=== PATIENT | female | born 1945 | race Caucasian/White ===

== ENCOUNTER 2018-02-26 13:02 | Observation (INO) | payer BC, OTHER ==
[~2018-02-26] VITALS: Ht 167.6 cm; Wt 136.4 kg
[~2018-02-26 13:02] MED LIST: ESOM40CA PO; METO-448 PO; TRA50
[2018-02-26] MEDS ORDERED: SOD CHLORIDE 0.9% 1,000 ML IV STA (13:32)
[2018-02-26] MEDS ORDERED: ONDANSETRON 4 MG INJ IV STA ×2 (13:32→16:55)
[2018-02-26] MEDS ORDERED: MECLIZINE 12.5 MG TAB PO ONE (14:00)
[2018-02-26] MEDS ORDERED: ESOM40CA PO (14:14)
[2018-02-26] MEDS ORDERED: METO-335 PO (14:15)
[2018-02-26] MEDS ORDERED: TRIA1CAP PO (14:16)
[2018-02-26] MEDS ORDERED: DIAZEPAM 5 MG TAB PO ONE (17:00)
--- NOTE | 2018-02-26 18:03 | ERD ---
ER Documentation Chief Complaint Chief Complaint DIZZINESS SINCE 0500, HX OF CV 2003 WITH SIMLIAR SYMPTOMS HPI This is a very pleasant 72-year-old female who took aspirin just prior to arrival. The patient indicates that she awoke this morning with an episode of vertigo where she described the room spinning around her. This lasted for several minutes but she had 2 further episodes. The third episode persisted with significant nausea. There is no changes in vision. The patient denied a headache. Therefore she presented to the emergency department to be reevaluated. The patient does indicate that in 2003 she had a similar episode and was diagnosed with a cerebrovascular accident. 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 The patient is not currently on anticoagulant therapy and states she took aspirin as stated just prior to arrival but does not take this on a regular basis. She did not experience any emesis. She denies any numbness or tingling of her upper or lower extremities. She had no fevers or shaking or chills. She denies any chest pain. She has no shortness of breath at rest or exertion. ROS All systems reviewed and are negative except as per history of present illness. Medications Home Meds Reported Medications Triamterene/Hydrochlorothiazid (Dyazide 37.5-25 Capsule) 1 Each Capsule, 1 EACH PO DAILY, CAP 02/26/18 Metoprolol Succinate* (Toprol XL*) 25 Mg Tab.sr.24h, 25 MG PO DAILY, #30 TAB 02/26/18 Esomeprazole Mag Trihydrate (Nexium) 40 Mg Capsule.dr, 40 MG PO AC BREAKFAST, #30 CAP 02/26/18 Discontinued Reported Medications Esomeprazole Mag Trihydrate (Nexium) 40 Mg Capsule.dr, PO DAILY 03/19/11 Metoprolol Tartrate* (Lopressor*) 25 Mg Tab, 12.5 MG PO DAILY, 0 Refills 12/30/10 Trazodone Hcl* (Desyrel*) 50 Mg Tablet 12/30/10 Allergies Allergies: Coded Allergies: Penicillins (Verified Allergy, Unknown, 03/19/11) PMhx/Soc History of Surgery: Yes (ATRIAL MIXOMA,APPE,PARTIAL HYSTERECTOMY,GALLBLADDER SURGERY) Anesthesia Reaction: No Hx Neurological Disorder: No Hx Respiratory Disorders: No Hx Cardiac Disorders: Yes (HTN) Hx Psychiatric Problems: No Hx Miscellaneous Medical Probl: Yes (INSOMNIA) Hx Alcohol Use: No Hx Substance Use: No Hx Tobacco Use: No Smoking Status: Never smoker Physical Exam Vitals Vital Signs Date Temp Pulse Resp B/P (MAP) Pulse Ox O2 O2 Flow FiO2 Time Delivery Rate 02/26/18 69 18 140/77 99 Room Air 17:38 (98) 02/26/18 74 20 146/74 99 Room Air 16:00 (98) 02/26/18 97.2 77 18 164/77 98 13:04 (106) Physical Exam Constitutional:Well-developed. Well-nourished. HEENT:Normocephalic. Atraumatic.Pupils were equal round reactive to light. Moist mucous membranes.No tonsillar exudates. Neck: No nuchal rigidity. No lymphadenopathy. No posterior cervical spine tenderness or step-offs. Respiratory: Not using accessory muscles of respiration.Lungs were clear to auscultation bilaterally. No rhonchi. No rales. No wheezing. Cardiovascular: Regular rate regular rhythm.No murmurs. No rubs were appreciated.S1, S2 normal. Distal pulses are palpable 2+ bilaterally. GI: Abdomen was soft. Nontender. Non Distended. No pulsatile abdominal masses or bruits. No rebound. No guarding. Bowel sounds were present and normal. Muscle skeletal: Full range of motion of both the upper and lower extremities bilaterally.Normal muscle tone.No assymetrical calf tenderness or swelling. Skin: No petechia, no purpura. No lesions on the palms or the soles of the feet. No maculopapular rash. NEURO: Patient was alert, awake, orientated x3.No facial droop. Gait observed and normal with no ataxia.Speech had regular rate and rhythm. No focal neurological deficits. No nystagmus Result Diagram: 02/26/18 1345 02/26/18 1345 Results 24 hrs Laboratory Tests Test 02/26/18 13:45 White Blood Count 8.7 10^3/ul Red Blood Count 5.64 10^6/ul Hemoglobin 15.2 g/dl Hematocrit 47.7 % Mean Corpuscular Volume 84.6 fl Mean Corpuscular Hemoglobin 27.0 pg Mean Corpuscular Hemoglobin Concent 31.9 g/dl Red Cell Distribution Width 13.2 % Platelet Count 308 10^3/UL Mean Platelet Volume 11.2 fl Immature Granulocytes % 0.300 % Neutrophils % 59.2 % Lymphocytes % 27.9 % Monocytes % 7.0 % Eosinophils % 5.4 % Basophils % 0.2 % Nucleated Red Blood Cells % 0.0 /100WBC Immature Granulocytes # 0.030 10^3/ul Neutrophils # 5.1 10^3/ul Lymphocytes # 2.4 10^3/ul Monocytes # 0.6 10^3/ul Eosinophils # 0.5 10^3/ul Basophils # 0.0 10^3/ul Nucleated Red Blood Cells # 0.0 10^3/ul Prothrombin Time 12.5 Sec Prothrombin Time Ratio 1.0 INR International Normalized Ratio 0.92 Activated Partial Thromboplast Time 28.2 Sec Sodium Level 138 mmol/L Potassium Level 4.0 mmol/L Chloride Level 98 mmol/L Carbon Dioxide Level 30 mmol/L Anion Gap 10 Blood Urea Nitrogen 22 mg/dl Creatinine 1.14 mg/dl Est Glomerular Filtrat Rate mL/min mL/min Glucose Level 115 mg/dl Calcium Level 9.7 mg/dl Total Bilirubin 0.1 mg/dl Direct Bilirubin 0.00 mg/dl Indirect Bilirubin 0.1 mg/dl Aspartate Amino Transf (AST/SGOT) 25 IU/L Alanine Aminotransferase (ALT/SGPT) 21 IU/L Alkaline Phosphatase 91 IU/L Troponin I < 0.012 ng/ml Total Protein 8.2 g/dl Albumin 4.5 g/dl Globulin 3.70 g/dl Albumin/Globulin Ratio 1.21 Current Medications Medications Dose Sig/Rudy Start Time Status Last (Trade) Ordered Route PRN Stop Time Admin Dose Reason Admin Sodium 1,000 ml @ Q1H STAT 02/26/18 DC 02/26/18 Chloride 1,000 mls/hr IV 13:32 13:57 02/26/18 14:31 Meclizine 25 mg ONCE ONCE 02/26/18 DC 02/26/18 HCl PO 14:00 13:57 (Antivert) 02/26/18 14:01 Ondansetron 4 mg ONCE STAT 02/26/18 DC 02/26/18 HCl (Zofran IV 13:32 13:56 Inj) 02/26/18 13:34 Diazepam 5 mg ONCE ONCE 02/26/18 DC 02/26/18 (Valium) PO 17:00 17:11 02/26/18 17:01 Ondansetron 4 mg ONCE STAT 02/26/18 DC 02/26/18 HCl (Zofran IV 16:55 17:12 Inj) 02/26/18 16:56 Procedures/MDM This patient was seen and evaluated by myself. The patient presented to the emergency department complaining of dizziness. My differential diagnosis included but was not limited to hypovolemia, myocardial infarction, pulmonary embolism, hypoglycemia, hypoxia, anemia, vasovagal episode, hypothyroidism, anxiety, peripheral or central vertigo. The patient was placed on a equipment monitor phototypesetting, continuous pulse oximetry and IV access established by nursing staff. The patient had a CT scan that showed no acute intracerebral hemorrhage mass-effect or midline shift. There is no electrolyte abnormalities. The patient had no evidence of sepsis. She had been given Antivert Zofran and IV fluids. There is no improvement of her symptoms. Therefore at this time she was given p.o. Valium. Again this also did not im prove her symptoms. Due to the intractable vertigo and her history of previous cerebrovascular accident with similar symptoms I did feel she required admission to the hospital. She will be admitted for observation under the care of Dr. Hutchinson. She will undergo an MRI. I also obtained venous duplex ultrasounds of the bilateral lower extremities and there is no evidence of a deep vein thrombosis reason for obtaining the venous duplex ultrasounds of the patient did states she had been having an intermittent cramping in her left lower extremity but was pain-free while in the emergency department. There is no Homans sign and no asymmetrical calf tenderness or swelling that I appreciated. 12 Lead EKG tracing ordered and reviewed by myself showed: Sinus bradycardia of 56 bpm and no arrhythmia. VA interval normal. QRS duration normal. No ST segment elevation No ST segment depression. No changes consistent with acute ischemia. Departure Diagnosis: Primary Impression: Vertigo Condition: ALEISHA Karimi MD Feb 26, 2018 18:02
--- NOTE | 2018-02-26 18:05 | NUR ---
ADMISSION Patient arrived to unit from ER. no shortness of breath or complaint of pain. oriented patient to room and call light functions. instructed patient to use call light if assistance is needed.
[2018-02-26 18:12] VITALS: PULSE 72
[2018-02-26] MEDS ORDERED: ACETAMINOPHEN 325 MG TAB PO PRN (19:00)
[2018-02-26 19:19] VITALS: Ht 167.6 cm; Wt 136.4 kg
[2018-02-26] MEDS ORDERED: ONDANSETRON 4 MG INJ IV PRN (19:30)
[2018-02-26 19:33] VITALS: BP 136/71; PULSE 77; RESP 20
[2018-02-26 20:00] VITALS: PULSE 71
[2018-02-26] MEDS ORDERED: ZOLPIDEM 5 MG TAB PO PRN (20:00)
--- NOTE | 2018-02-26 20:03 | NUR ---
Nurse Note Pt states she has wires in her chest from open heart sx. Dr Bedoya, covering fro Dr Watson, notified. States to move forward with MRI if cleared [facility], LOBO Méndez made aware.
[2018-02-26] MEDS ORDERED: METOPROLOL (XL) 25 MG TAB PO ONE (21:29)
[2018-02-26] MEDS ORDERED: PANTOPRAZOLE (EC) 40 MG TAB PO ONE (21:29)
[2018-02-26] MEDS: MECLIZINE 25 MG TAB PO SCH (21:35)
[2018-02-26] MEDS: SOD CHLORIDE 0.9% 1,000 ML IV SCH (21:36)
--- NOTE | 2018-02-26 21:37 | HP ---
DATE OF ADMISSION: 02/26/2018 ADMITTING DIAGNOSES: Vertigo and dizziness. HISTORY OF PRESENT ILLNESS: The patient is a 72-year-old female with hypertension, gastroe sophageal reflux disease, history of atrial myxoma who presented to the emergency room with acute epi sode of vertigo. The patient says she was awakened acutely at 5:00 this morning with severe spinning of the room dizziness and nausea. The patient had at least 5 episodes this morning, each of them pr ogressively worse with associated nausea but no vomiting. The patient had no visual changes and no w eakness in her extremities. The patient presented to the emergency room with this and she is current ly feeling better but still feels imbalance. The patient reports that when she would turn her head s he would have further dizziness as well. REVIEW OF SYSTEMS: Significant for a dry cough that she has had for the last 2 weeks with occasional expiratory wheeze, but no fevers, chills or night sweats. The patient also has been having calf colt n, left greater than right, for the past week with some swelling in the ankles. Otherwise, review of systems unremarkable. PAST MEDICAL HISTORY: 1. History of CVA status post atrial myxoma rupture. 2. Hypertension. 3. Gastroesophageal reflux disease. 4. Depression. 5. Morbid obesity. PAST SURGICAL HISTORY: Status post resection of atrial myxoma, partial hysterectomy and cholecystect matheus. FAMILY HISTORY: Hypertension, CVA, coronary artery disease. ALLERGIES: PENICILLIN. MEDICATIONS 1. Metoprolol succinate ER 25 mg q.p.m. 2. Triamterene/hydrochlorothiazide 37.5/25 p.o. q.p.m. 3. Nexium 40 mg every day in the p.m. SOCIAL HISTORY: The patient is , lives alone. No tobacco, no alcohol use. PHYSICAL EXAMINATION: VITAL SIGNS: Initial blood pressure 164/77 with a pulse of 77, respiratory rate 18, temperature 97.2 , and oxygen saturation 98% on room air in the emergency room. Currently, temperature is 98.2, pulse 77, respirations 20, blood pressure 136/71 and oxygen saturation 95% on room air. GENERAL: Well-developed, well-nourished female in no acute distress, sitting up in chair. SKIN: Without rashes. Decreased turgor. HEENT: EOMI, PERRLA. Oropharynx is clear without exudate. No nystagmus. NECK: 2+ carotid upstroke without bruits. No lymphadenopathy, no thyromegaly. CHEST: Clear to auscultation bilaterally. No wheezes, no rhonchi, no rales. HEART: Regular rate and rhythm. Normal S1, S2. No murmurs, gallops or rubs noted. ABDOMEN: Morbid obesity, normoactive bowel sounds, nontender, nondistended. GENITOURINARY: Deferred. EXTREMITIES: Trace bilateral lower extremity edema. The left Achilles tender to palpation fro m just above the ankle to the proximal calf. No erythema. NEUROLOGIC: Nonfocal. Romberg is negative otherwise unremarkable neurologic examination. IMAGING: CT scan of the brain shows moderate to severe bifrontal cortical atrophy. No evidence of m ass effect. No evidence of acute intracranial hemorrhage, infarct or fluid collection. Chest x-ray, single view, hiatal hernia, status post median sternotomy, cardiomegaly, no evidence of acute cardio pulmonary disease. LABORATORY EXAMINATION: White blood cell count 8.7, hemoglobin 15.2, hematocrit 47.7, platelets 308. Sodium 138, potassium 4.0, chloride 98, bicarbonate 30, BUN of 22, creatinine 1.14, glucose 115, ca lcium 9.7, total bilirubin 0.1, AST 25, ALT of 21, alkaline phosphatase 91. Troponin less than 0.012 . Total protein 8.2, albumin is 4.5. IMPRESSION: The patient is a 72-year-old female with hypertension, gastroesophageal reflux disease, history of stroke from atrial myxoma in the past. The patient presented with severe vertig o with associated nausea. The patient is being admitted to telemetry for further evaluation and la tment of her vertigo. 1. Vertigo. Unclear if patient with peripheral versus central cause for her vertigo. We will order stat carotid duplex scan as well as a stat MRI of the brain for further evaluation. We will do tele metry monitoring to evaluate for cardiac arrhythmia and neuro checks. 2. Calf pain. Unclear etiology, but the patient with edema and pain with walking and need to rule o ut DVT, we will do a venous duplex scan of bilateral lower extremities to evaluate further. 3. Hypertension, stable. Continue the patient's medication, her metoprolol. Withhold the diuretic as patient appears dehydrated based on labs and examination. 4. GERD. We will continue with diet as well as the patient's proton pump inhibitor and we will give pantoprazole instead of Nexium as Nexium is not on formulary. Dictated By: ROSA MARINO MD SR/NTS Conf#: [id number] DID#: [id number]
[2018-02-27] VITALS (8 sets, daily range): BP systolic 105–125; BP diastolic 53–61; PULSE 59–76; RESP 18–20
--- NOTE | 2018-02-27 | NUR ---
Nurse Note Pt refused skin assessment at start if shift, refused photos. Pt ambulatory, skin clear of wounds upon glance.
[2018-02-27] MEDS: SOD CHLORIDE 0.9% 1,000 ML IV SCH ×2 (05:30→06:59)
[2018-02-27] MEDS ORDERED: PANTOPRAZOLE (EC) 40 MG TAB PO SCH ×2 (06:00→21:00)
--- NOTE | 2018-02-27 06:33 | NUR ---
EOSS Pt AOx4, on RA, ambulatory, steady on her feet. With no complaint of chest pain, MRI brain complete. Pt complained of dizziness x1 during shift, vitals stable, pt remained afebrile, will endorse to oncoming RN.
[2018-02-27] MEDS: MECLIZINE 25 MG TAB PO SCH ×2 (08:27→12:49)
--- NOTE | 2018-02-27 08:54 | PN ---
DATE: 02/27/2018 SUBJECTIVE: The patient is feeling better but still "wobbly", but no episodes of dizziness since 9:3 0 last night. OBJECTIVE: VITAL SIGNS: Temperature 98.1, pulse 72 and regular, respirations 18, blood pressure 125/61, oxygen saturation 92% on room air. GENERAL: Well-developed, well-nourished female in no acute distress. LUNGS: Clear to auscultation bilaterally. HEART: Regular rate and rhythm. ABDOMEN: Soft, nontender. EXTREMITIES: Trace edema. There is still tenderness in left greater than right Achilles and calf wi th trace edema. NEUROLOGIC: Nonfocal. IMAGING: Brain MRI shows no acute infarct or space occupying masses. Old bilateral cerebellar lacun ar infarcts and microvascular ischemic changes. Carotid duplex scan shows no hemodynamically signifi cant stenoses. LABORATORY DATA: Sodium 142, potassium 4.1, chloride 104, bicarbonate 28, BUN of 21, creatinine 1.08 , blood sugar 111, magnesium 2.1 and TSH of 1.19, hemoglobin of 12.8, hematocrit of 40.0, white blood cell count of 7.5, platelets of 234. ASSESSMENT AND PLAN: 1. Vertigo. The patient with improved symptoms and MRI shows no acute infarct, likely a peripheral cause for patient's vertigo. The patient likely with labyrinthitis versus benign positional vertigo. We will continue with meclizine and have the patient do some exercises with respect to her vertigo. 2. Hypertension, stable. Continue with medications. 3. Pain in the calf stable, but persistent, will await duplex scans of the lower extremities and luisana luate for DVT and if this is ruled out, the patient will likely be able to go home today. 4. Gastroesophageal reflux disease, stable. Continue with diet and meds. 5. Discharge planning; if the patient's duplex scans are negative over the lower extremities the pat ient would be stable for discharge to home today on meclizine. Dictated By: ROSA MARINO MD SR/NTS Conf#: [id number] DID#: [id number] CC: ROSA MARINO MD;*EndCC*
[2018-02-27] MEDS ORDERED: TRIAMTERENE/HCTZ (37.5/25) TAB PO SCH (09:00)
[2018-02-27] MEDS ORDERED: METOPROLOL (XL) 25 MG TAB PO SCH (09:00)
--- NOTE | 2018-02-27 12:51 | PDOCDIS ---
Discharge Instructions DIAGNOSIS Discharge Diagnosis Peripheral Vertigo CONDITION [id number] Patient Condition: [id number] Good HOME CARE INSTRUCTIONS: [id number] Diet Instructions: [id number] FOLLOW UP/APPOINTMENTS Follow-up Plan Follow up as scheduled 03/12 ROSA MARINO MD- Feb 27, 2018 12:51
[2018-02-27] MEDS ORDERED: MECL-77 PO (12:52)
--- NOTE | 2018-02-27 14:00 | NUR ---
Discharge Notes Pt ao x 4 and stable for discharge to home. bus monitor d/c'd. Discharge packet given to the Pt. Education provided regarding discharge instructions. Pt's new prescription was sent out to Pt's own pharmacy. All questions answered. All needs met. IV d/c'd with tip intact and no bruise or bleeding noted. All belongings returned to Pt.
== END 2018-02-27 14:26 | disposition home or self-care (01) ==
LOC: E/R 13:02 → 6WM 16:54
PROVIDERS: ADMIT Internal Medicine; ATTEND Internal Medicine
DX: R42 Dizziness and giddiness (principal); I10 Essential (primary) hypertension; M79.669 Pain in unspecified lower leg; K21.9 Gastro-esophageal reflux disease without esophagitis; E66.01 Morbid (severe) obesity due to excess calories; Z68.42 Body mass index [BMI] 45.0-49.9, adult; Z88.0 Allergy status to penicillin; Z86.73 Personal history of transient ischemic attack (TIA), and cerebral infarction without residual deficits
CPT/HCPCS: 36415; 70450; 70551; 71045; 80048; 80053; 83735; 84443; 84484; 85025; 85610; 85730; 93005; 93880; 93970; 96374; 99285; G0378; J2405; J7030